=== PATIENT | female | born 1965 | race Caucasian/White ===

== ENCOUNTER 2023-05-22 17:04 | Outpatient (REF) | payer OTHER, SELFPAY ==
[2023-05-26 14:59] LABS: VITAMIN D (1,25 OH) D3 63 pg/mL; Vit D (1,25-Dihydroxy) Total 63 pg/mL (18-72); Vitamin D (1,25 OH) D2 <8 pg/mL
== END 2023-05-22 17:05 | disposition home or self-care (01) ==
LOC: HO.LAB 17:04
PROVIDERS: PCP Internal Medicine; Visit Provider Physician Assistant
DX: K21.9 Gastro-esophageal reflux disease without esophagitis (principal); E55.9 Vitamin D deficiency, unspecified
CPT/HCPCS: 36415; 82652

== ENCOUNTER 2023-06-09 16:32 | Outpatient (REF) | payer OTHER, SELFPAY | END 2023-06-09 16:33 | disposition home or self-care (01) | LOC: HO.LAB 16:32 | PROVIDERS: PCP Internal Medicine; Visit Provider Physician Assistant | DX: Z13.89 Encounter for screening for other disorder (principal) ==

== ENCOUNTER 2023-07-10 13:27 | Outpatient (AMB) | payer OTHER, SELFPAY ==
--- NOTE | 2023-07-10 13:35 | MHC.PC.OV ---
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 Transferring care from [facility]. Medical records have not been requested and have not received. Metal Or Wood Blocker Required: No Help Desk Manager: Not Required per policy Accompanied by: Self / Same As Patient Allergies cat dander Allergy (Intermediate, Verified 07/10/23 13:47) Wheezing chlorthalidone Allergy (Intermediate, Verified 07/10/23 13:47) toungue swelling hydrochlorothiazide Allergy (Intermediate, Verified 07/10/23 13:47) toungue swelling lisinopril Allergy (Intermediate, Verified 07/10/23 13:47) tongue swelling bee sting Allergy (Severe, Uncoded 07/10/23 13:47) Altered Sense of Taste Medication List - Last Reconciled 07/10/23 by Lucila Myers MD albuterol sulfate 90 mcg/actuation 2 puffs inhalation Q4-6H PRN amlodipine 5 mg PO DAILY biotin (Hair, Skin and Nails (biotin)) mcg PO calcium carbonate-vitamin D3 1,000 mg-20 mcg (800 unit) 1 tab PO DAILY epinephrine 0.3 mg IM Q4H PRN fluticasone propionate 50 mcg/actuation 2 sprays intranasal DAILY guar gum 1 tbsp PO DAILY loratadine (Allergy Relief (loratadine)) 10 mg PO DAILY multivitamin with iron (Daily Multiple Vitamins with Iron tablet) 1 tab PO DAILY ondansetron HCl 4 mg PO Q8H pantoprazole 40 mg PO BID polyethylene glycol 3350 (Miralax) 17 grams PO DAILY polyethylene glycol 3350 (Miralax) 17 grams PO DAILY Tobacco use date assessed: 07/10/23 Dental Screening Dental Screen Date: 07/10/23 Did you have a dental visit in the last 12 months?: Yes Did you have a dental problem in the last 6 months where you did not have access to dental care?: No Was dental information given to patient?: Patient has dentist 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 Has a history also of laparoscopic cholecystectomy under Dr. Molina in 2001. Had an elevation in liver function test before ultrasound done showing fatty liver. [facility] Surgical History (Updated 07/10/23 @ 14:22 by Lucila Myers MD) History of pubovaginal sling Hx laparoscopic cholecystectomy History of delivery Hx of myomectomy History of gastric surgery Family History (Updated 07/10/23 @ 14:25 by Lucila Myers MD) Mother Cerebral aneurysm Lung cancer Maternal Grandmother Cerebral aneurysm Breast cancer Maternal Grandfather Liver cancer Father CAD (coronary artery disease) Brother CAD (coronary artery disease) Other Substance use disorder Social History (Updated 07/10/23 @ 13:57 by Paulina Gutiérrez Roge) Housing: House Alcohol intake: current Alcohol intake frequency: holidays/special occasions only Patient Tobacco Use Status: Never used Tobacco e-Cigarette/Vaping Use: Never Used Second Hand Smoke Exposure: No service: No Current occupational status: employed Current occupation: Nurse Cognitive needs: No Hearing needs: No Vision needs: Yes (Glasses) Questionnaire PHQ-9 Over the last 2 weeks, how often have you been bothered by any of the following problems? 1. Little interest or pleasure in doing things: not at all 2. Feeling down, depressed, or hopeless: not at all 3. Trouble falling or staying asleep, or sleeping too much: not at all 4. Feeling tired or having little energy: not at all 5. Poor appetite or overeating: not at all 6. Feeling bad about yourself - or that you are a failure or have let yourself or your family down: not at all 7. Trouble concentrating on things, such as reading the newspaper or watching television: not at all 8. Moving or speaking so slowly that other people could have noticed. Or the opposite - being so fidgety or restless that you have been moving around a lot more than usual: not at all 9. Thoughts that you would be better off or of hurting yourself in some way: not at all Total score: 0 Depression Screening Interpretation: Negative Depression Screening Done: Yes Source: Developed by Drs. Scott Gómez, Erma Valente, Eduardo Alamo and colleagues, with an educational autumn from [employer]. Thrive Questionnaire Date Thrive assessed: 07/10/23 I am a: Patient What is your living situation today?: I have a steady place to live Within the past 12 months, did the food you bought not last and you didn't have the money to get more?: Never true Within the past 12 months, did you worry whether your food would run out before you got money to buy more?: Never true Do you have trouble paying for medicines?: No Do you have trouble getting transportation to medical appointments?: No Do you have trouble paying your heating and electricity bill?: No Do you have trouble taking care of your child, family member or friend?: No Do you have trouble with day-to-day activities such as bathing, preparing meals, shopping, managing finances, etc.?: No Are you currently unemployed and looking for a job?: No Are you interested in more education?: No Currently or been in a relationship where the following occur: no concerns reported THRIVE Score: 0 AUDIT C Alcohol Use Questionnaire (AUDIT-C) 1. How often do you have a drink containing alcohol?: Never Total Score: 0 KATIE-7 AMB Questionnaire KATIE-7 Date KATIE - 7 assessed: 07/10/23 Feeling nervous, anxious, or on edge: 0 = Not at all Not being able to stop or control worryin = Not at all Worrying too much about different things: 0 = Not at all Trouble relaxin = Not at all Being so restless that it is hard to sit still: 0 = Not at all Becoming easily annoyed or irritable: 0 = Not at all Feeling afraid as if something awful might happen: 0 = Not at all Total KATIE-7 score (0-4 normal; 5-9 mild; 10-14 moderate; 15-21 severe): 0 Source: Developed by Drs. Scott Gómez, Eduardo Paredes and colleagues, with an educational autumn from [employer]. Physical exam (Primary Care) Vital Signs: Last Vital Signs Pulse 70 07/10/23 13:37 BP 110/70 07/10/23 13:37 Pulse Ox 98 07/10/23 13:37 Oxygen Delivery Method Room Air 07/10/23 13:37 BMI result Body Mass Index 29.7 Tobacco/Smoking Status: Tobacco use Status Tobacco use date assessed 07/10/23 07/10/23 13:58 Patient Tobacco Use Status Never used Tobacco 07/10/23 13:58 e-Cigarette/Vaping Use Never Used 07/10/23 13:58 PHQ-9: PHQ-9 Score PHQ-9: Total score 0 07/10/23 13:58 Depression Screening Interpretation: Negative Thrive Assessment: Date of Thrive Assessment Date Thrive assessed 07/10/23 07/10/23 13:58 Currently or been in a relationship where the following occur: no concerns reported Const General: alert; No acute distress Eyes Conjunctivae: conjunctivae normal Resp Auscultation: clear to auscultation bilaterally Cardio Rate: regular rate Rhythm: regular rhythm GI Inspection: Yes normal to inspection Extrem General: Yes normal to inspection and No edema Assessment and Plan Assessment & Plan (1) Fatty liver: Code(s): K76.0 - Fatty (change of) liver, not elsewhere classified Plan: Low-fat diet and exercise (2) Hypertension: Code(s): I10 - Essential (primary) hypertension Plan: Continue with blood pressure medication. Decrease salt intake and exercise on amlodipine 5 mg once a day (3) History of gastric surgery: Comment: sleeve 02/15/23 Dr. Pricila Catalan/Ebony Code(s): Z98.890 - Other specified postprocedural states Plan: Continue to follow-up with bariatric surgeon (4) Overweight: Code(s): E66.3 - Overweight Plan: Continue with diet and exercise (5) GERD (gastroesophageal reflux disease): Code(s): K21.9 - Gastro-esophageal reflux disease without esophagitis Plan: Avoid the foods that causes that usually spicy foods, tomato products, juices, coffee, soda and foods that your sensitive to. After eating do not lie down, allow 3-4 hours before in lie down. And keep the head of bed above 30 degrees to avoid the acid from going up. (6) Breast cancer screening by mammogram: Code(s): Z12.31 - Encounter for screening mammogram for malignant neoplasm of breast Orders: Orders MM tomosynthesis screening BI Today Z12.31 - Encounter for screening mammogram for malignant neoplasm of breast Comprehensive Met. Panel Today I10 - Essential (primary) hypertension Thyroid Stimulating Hormone Today I10 - Essential (primary) hypertension Vitamin B1 Today I10 - Essential (primary) hypertension Vitamin A Today I10 - Essential (primary) hypertension Complete Blood Count Auto Diff Today I10 - Essential (primary) hypertension Free T4 (Free Thyroxine) Today I10 - Essential (primary) hypertension Lipid Panel Today E78.00 - Pure hypercholesterolemia, unspecified, I10 - Essential (primary) hypertension Vitamin B12 and Folate Today I10 - Essential (primary) hypertension Coding Level of Care Code New Pt Level 4 (14945) Diagnoses Fatty liver K76.0 Hypertension I10 History of gastric surgery Z98.890 Overweight E66.3 GERD (gastroesophageal reflux disease) K21.9 Breast cancer screening by mammogram Z12.31
[2023-07-10 13:37] VITALS: BP 110/70; PULSE 70; O2SAT 98; BMI 29.7
== END 2023-07-10 15:14 | disposition home or self-care (01) ==
PROVIDERS: PCP Internal Medicine; Visit Provider Internal Medicine
DX: K76.0 Fatty (change of) liver, not elsewhere classified (principal); I10 Essential (primary) hypertension; Z98.890 Other specified postprocedural states; E66.3 Overweight; K21.9 Gastro-esophageal reflux disease without esophagitis; Z12.31 Encounter for screening mammogram for malignant neoplasm of breast
CPT/HCPCS: 99204

== ENCOUNTER 2023-08-31 15:48 | Outpatient (REF) | payer OTHER, SELFPAY | END 2023-08-31 15:49 | disposition home or self-care (01) | LOC: HO.MAMMO 15:48 | PROVIDERS: PCP Internal Medicine; Visit Provider Internal Medicine | DX: Z12.31 Encounter for screening mammogram for malignant neoplasm of breast (principal) | CPT/HCPCS: 77063; 77067 ==

== ENCOUNTER → 2023-08-31 16:00 | Outpatient (BNV) | payer OTHER, SELFPAY | PROVIDERS: PCP Internal Medicine; Visit Provider Radiology Diagnostic Radiology | DX: Z12.31 Encounter for screening mammogram for malignant neoplasm of breast (principal) | CPT/HCPCS: 77063; 77067 ==

== ENCOUNTER 2023-12-12 08:47 | Outpatient (REF) | payer OTHER, SELFPAY ==
[2023-12-12 10:40] LABS: Basophils Percent Auto 0.9 % (0-2); Eosinophils Absolute Auto 0.1 X10*3/uL (0.0-0.4); Hematocrit 40.9 % (37.0-47.0); Hemoglobin 13.8 g/dl (12.0-16.0); Imm Gran Abs Auto 0.01 X10*3/uL (0.00-0.03); Imm Gran Pct Auto 0.2 % (0.0-0.4); Lymphocytes Absolute Auto 1.8 X10*3/uL (1.2-4.9); Lymphocytes Percent Auto 41.2 % (20-40); MANUAL DIFF FLAG NO; Mean Corpuscular HGB Conc 33.7 g/dl (31.0-35.0); Mean Corpuscular Volume 97.8 fL (80.0-98.0); Mean Platelet Volume 10.9 fL (9.4-12.3); Monocytes Absolute Auto 0.5 X10*3/uL (0.1-1.2); Monocytes Percent Auto 10.7 % (2-11); Neutrophils Absolute Auto 1.9 x10*3/uL (2.0-8.3); Platelet Count 237 X10*3/uL (160-400); Red Blood Count 4.18 X10*6/uL (4.20-5.50); Red Cell Distribution Width 13.2 % (11.0-16.0); White Blood Count 4.4 X10*3/uL (4.8-10.8)
[2023-12-12 10:44] LABS: Alanine Aminotransferase 14 U/L (0-31); Albumin Level 3.7 g/dL (3.5-5.0); Alkaline Phosphatase 60 U/L (39-117); Anion Gap 9 (12-20); Aspartate Amino Transferase 18 U/L (5-31); Bilirubin Total 0.7 mg/dL (0.0-1.0); Blood Urea Nitrogen 19 mg/dL (9-16); Calcium 9.2 mg/dL (8.4-10.2); Carbon Dioxide 31 mmol/L (22-29); Chloride 109 mmol/L (96-108); Cholesterol 190 mg/dL (<200); Estimated Glomerular Filt Rate > 60; Glucose Random 90 mg/dL (60-115); HDL Cholesterol 62 mg/dL (>40); LDL Cholesterol Calculated 111 mg/dL (<100); Potassium 4.4 mmol/L (3.3-5.1); Sodium 145 mmol/L (135-145); Total Protein 6.4 g/dL (6.5-8.0); Triglycerides 86 mg/dL (<150)
[2023-12-12 10:54] LABS: Free T4 (Free Thyroxine) 1.09 ng/dL (0.71-1.85); Thyroid Stimulating Hormone 1.17 uIU/mL (0.32-4.0)
[2023-12-12 16:43] LABS: Folate 11.7 ng/mL (> or = 4.0); Vitamin B12 1172 pg/mL (200-900)
[2023-12-18 01:39] LABS: Vitamin A 51 mcg/dL (38-98)
[2023-12-18 06:28] LABS: Vitamin B1 25 nmol/L (8-30)
== END 2023-12-12 08:48 | disposition home or self-care (01) ==
LOC: HO.LAB 08:47
PROVIDERS: PCP Internal Medicine; Visit Provider Internal Medicine
DX: I10 Essential (primary) hypertension (principal); E78.00 Pure hypercholesterolemia, unspecified
CPT/HCPCS: 36415; 80053; 80061; 82607; 82746; 84425; 84439; 84443; 84590; 85025

== ENCOUNTER 2023-12-15 14:34 | Outpatient (AMB) | payer OTHER, SELFPAY ==
[2023-12-15 14:35] VITALS: BP 130/68; PULSE 81; O2SAT 98; BMI 28.7
--- NOTE | 2023-12-15 14:35 | A.OFFPC_ITS ---
Vital Signs 12/15/23 14:35 Height 5 ft Weight 147 lb BMI 28.7 BP 130/68 Blood Pressure Location Lt brachial Position Sitting Pulse 81 Pulse Source Pulse Oximeter Pulse Oximetry (%) 98 Oxygen Delivery Method Room Air Intake Visit Reasons: Annual Exam Allergies cat dander Allergy (Intermediate, Verified 12/15/23 14:35) Wheezing chlorthalidone Allergy (Intermediate, Verified 12/15/23 14:35) toungue swelling hydrochlorothiazide Allergy (Intermediate, Verified 12/15/23 14:35) toungue swelling lisinopril Allergy (Intermediate, Verified 12/15/23 14:35) tongue swelling bee sting Allergy (Severe, Uncoded 12/15/23 14:35) Altered Sense of Taste Medication List - Last Reconciled 12/15/23 by Lucila Myers MD albuterol sulfate 90 mcg/actuation 2 puffs inhalation Q4-6H PRN amlodipine 5 mg PO DAILY biotin (Hair, Skin and Nails (biotin)) mcg PO calcium carbonate-vitamin D3 1,000 mg-20 mcg (800 unit) 1 tab PO BID epinephrine 0.3 mg IM Q4H PRN fluticasone propionate 50 mcg/actuation 2 sprays intranasal DAILY loratadine (Allergy Relief (loratadine)) 10 mg PO DAILY multivitamin with iron (Daily Multiple Vitamins with Iron tablet) 1 tab PO DAILY ondansetron HCl 4 mg PO Q8H pantoprazole 40 mg PO QAM sucralfate (Carafate) 10 mL PO BID Tobacco use date assessed: 07/10/23 Dental Screening Dental Screen Date: 12/15/23 Did you have a dental visit in the last 12 months?: Yes Did you have a dental problem in the last 6 months where you did not have access to dental care?: No Was dental information given to patient?: Patient has dentist HPI Annual Exam HPI Details 58-year-old overweight female with hyper tension GERD history of gastric surgery fatty liver coming in for annual physical last seen in 07/08/2023. Patient is up-to-date with colonoscopy in 2016 mammogram up-to-date. Review of the notes in June 2023 had an upper GI series revealing gastric sleeve surgery 07/07/2022, small sliding hiatal hernia. Large amount of gastroesophageal reflux to the upper esophagus. [facility] Medical History (Updated 12/15/23 @ 14:43 by Lucila Myers MD) Breast cancer screening by mammogram Surgical History (Updated 07/10/23 @ 14:22 by Lucila Myers MD) History of pubovaginal sling Hx laparoscopic cholecystectomy History of delivery Hx of myomectomy History of gastric surgery Family History (Updated 07/10/23 @ 14:25 by Lucila Myers MD) Mother Cerebral aneurysm Lung cancer Maternal Grandmother Cerebral aneurysm Breast cancer Maternal Grandfather Liver cancer Father CAD (coronary artery disease) Brother CAD (coronary artery disease) Other Substance use disorder Social History (Updated 12/15/23 @ 14:48 by Lucila Myers MD) Housing: House Alcohol intake: never Patient Tobacco Use Status: Never used Tobacco Tobacco use type: Cigarette e-Cigarette/Vaping Use: Never Used Second Hand Smoke Exposure: No service: No Current occupational status: employed Current occupation: Nurse Cognitive needs: No Hearing needs: No Vision needs: Yes (Glasses) Questionnaire PHQ-9 Over the last 2 weeks, how often have you been bothered by any of the following problems? 1. Little interest or pleasure in doing things: not at all 2. Feeling down, depressed, or hopeless: not at all 3. Trouble falling or staying asleep, or sleeping too much: not at all 4. Feeling tired or having little energy: not at all 5. Poor appetite or overeating: not at all 6. Feeling bad about yourself - or that you are a failure or have let yourself or your family down: not at all 7. Trouble concentrating on things, such as reading the newspaper or watching television: not at all 8. Moving or speaking so slowly that other people could have noticed. Or the opposite - being so fidgety or restless that you have been moving around a lot more than usual: not at all 9. Thoughts that you would be better off or of hurting yourself in some way: not at all Total score: 0 Depression Screening Interpretation: Negative Depression Screening Done: Yes Source: Developed by Drs. Scott Gómez, Erma Valente, Eduardo Alamo and colleagues, with an educational autumn from [employer]. Thrive Questionnaire Date Thrive assessed: 07/10/23 AUDIT C Alcohol Use Questionnaire (AUDIT-C) 1. How often do you have a drink containing alcohol?: Never 3. How often do you have six or more drinks on one occasion?: Never Total Score: 0 KATIE-7 AMB Questionnaire KATIE-7 Date KATIE - 7 assessed: 07/10/23 Source: Developed by Drs. Scott Gómez, Erma Valente, Eduardo Alamo and colleagues, with an educational autumn from [employer]. Review of Systems Const Denies poor appetite and Denies weakness Eyes Denies no additional complaints ENT Reports Normal hearing present, Denies dizziness, Denies nasal congestion, Denies tinnitus and Denies sore throat Card Denies chest pain, Denies syncope, Denies rapid heart rate and Denies dyspnea Resp Denies cough and Denies dyspnea GI Denies change in stool character, Reports constipation, Denies diarrhea, Denies nausea and Denies vomiting Denies urinary frequency, Denies difficulty voiding and Denies dysuria Neuro Reports Normal hearing present, Denies confusion, Denies dizziness, Denies syncope and Denies weakness Psych Denies confusion Physical exam (Primary Care) Vital Signs: Last Vital Signs Pulse 81 12/15/23 14:35 BP 130/68 12/15/23 14:35 Pulse Ox 98 12/15/23 14:35 Oxygen Delivery Method Room Air 12/15/23 14:35 BMI result Body Mass Index 28.7 Tobacco/Smoking Status: Tobacco use Status Tobacco use date assessed 07/10/23 12/15/23 14:40 Patient Tobacco Use Status Never used Tobacco 12/15/23 14:40 Tobacco use type Cigarette 12/15/23 14:40 e-Cigarette/Vaping Use Never Used 12/15/23 14:40 PHQ-9: PHQ-9 Score PHQ-9: Total score 0 12/15/23 14:40 Depression Screening Interpretation: Negative Thrive Assessment: Date of Thrive Assessment Date Thrive assessed 07/10/23 12/15/23 14:40 Const General: No confusion Orientation/consciousness: No confusion HENMT Head: Yes normocephalic Ears: external ears normal and TM's normal bilaterally Face and sinus: Yes normal facial exam Mouth: moist mucous membranes Throat: Yes tonsils normal Eyes Conjunctivae: conjunctivae normal Pupils: Equal, round and reactive pupils present and Pupil accommodation reflex normal Direct Ophthalmoscopy: normal light reflex Neck Neck: No lymphadenopathy Thyroid: Thyroid normal Chest Chest palpation & inspection: normal inspection of the chest Resp Effort & Inspection: normal respiratory effort and no audible wheezes Auscultation: clear to auscultation bilaterally, no crackles, no wheezes and lung sounds not diminished Cardio Other: bigeminy Rate: regular rate Rhythm: regular rhythm Peripheral pulses: radial pulses present and dorsalis pedis present GI Other: decline Palpation (GI): no masses Auscultation: normal bowel sounds and normoactive bowel sounds Rectal Exam - Female: deferred Skin General skin exam: no rashes or lesions noted Rashes: no rashes Neuro General: No confusion Cranial nerves: Yes Equal, round and reactive pupils present and Yes Normal hearing present Cognition (Neuro): normal cognition Gait exam (Neuro): Normal gait present Motor exam (neuro): 5/5 motor strength present throughout Deep tendon reflexes (DTR's): Right brachioradialis reflex intensity grade: 2+, Left brachioradialis reflex intensity grade: 2+, Right patellar reflex intensity grade: 2+ and Left patellar reflex intensity grade: 2+ Extrem General: No edema Assessment and Plan Assessment & Plan (1) Annual physical exam: Code(s): Z00.00 - Encounter for general adult medical examination without abnormal findings Plan: Patient is advised to eat healthy, keep well hydrated, keep active and have adequate sleep. (2) History of gastric surgery: Comment: sleeve 02/15/23 Dr. Pricila Catalan/Ebony Code(s): Z98.890 - Other specified postprocedural states Plan: Continue to follow-up with bariatric surgeon (3) GERD (gastroesophageal reflux disease): Code(s): K21.9 - Gastro-esophageal reflux disease without esophagitis Plan: Avoid the foods that causes that usually spicy foods, tomato products, juices, coffee, soda and foods that your sensitive to. After eating do not lie down, allow 3-4 hours before in lie down. And keep the head of bed above 30 degrees to avoid the acid from going up. On pantoprazole 40 mg twice a day (4) Hypertension: Code(s): I10 - Essential (primary) hypertension Plan: Continue with blood pressure medication. Decrease salt intake and exercise takes amlodipine 5 mg once a day (5) Fatty liver: Code(s): K76.0 - Fatty (change of) liver, not elsewhere classified Plan: Low-fat diet and exercise Orders: Referrals Gastroenterology Referral K21.9 - Gastro-esophageal reflux disease without esophagitis Coding Level of Care Code Est Pt Prev Care 40-64y(18343) Diagnoses Annual physical exam Z00.00 History of gastric surgery Z98.890 GERD (gastroesophageal reflux disease) K21.9 Hypertension I10 Fatty liver K76.0
== END 2023-12-15 15:02 | disposition home or self-care (01) ==
PROVIDERS: PCP Internal Medicine; Visit Provider Internal Medicine
DX: Z00.00 Encounter for general adult medical examination without abnormal findings (principal); Z98.890 Other specified postprocedural states; K21.9 Gastro-esophageal reflux disease without esophagitis; I10 Essential (primary) hypertension; K76.0 Fatty (change of) liver, not elsewhere classified
CPT/HCPCS: 99396

== ENCOUNTER 2024-09-05 15:53 | Outpatient (REF) | payer OTHER, SELFPAY ==
--- OUTSIDE RECORDS SUMMARY | 2024-09-05 15:59 | XMS_ITS ---
Author Organization [facility] Address [address] [place] [address] Care Team Providers Care Drying Machine Receiver Name Role Phone Lucila Myers MD Primary Care Provider Scott Ortega [phone] REASON FOR VISIT gerd Encounters Encounter Location Date Provider Diagnosis [facility] [address] [place] [address] 05/04/2024 Scott Gil Plan Of Treatment Next Appt Details Provider Name:Scott Spenser Gil , 01/11/2025 04:20:00 PM, [address], [address], [place], [address], Progress Notes * DAY PARKOLIVIADOB:1965 ( 59 yo F)Acc No.[id number]:05/04/2024 Progress Notes Patient:?STEVE PARK Provider:?Scott Gil MD :1965???Age:58 Y???Sex:Female D ate:05/04/2024 Address:[address] [place], [place] [id number] Pcp:Lucila Myers MD Subjective: * Chief Complaints: * ???1. Gerd. * Medical History:? Objective: * Vitals:? Assessment: Plan: * Treatment: * * The named appointment provid er may or may not be the originator of this progress note, and it is not deemed complete until electronically signed by the appointment provider. Sign off status: Pending * Provider:?Scott Gil MD Date:? 025 Generated for Krystal belcher/Famiroslavag/eTransmitting on:?09/05/2024 03:58 PM EDT
--- OUTSIDE RECORDS SUMMARY | 2024-09-05 15:59 | XMS_ITS ---
Author Organization [facility] Address [address] [place] [address] Care Team Providers Care Technical Spec Name Role Phone Lucila Myers MD Primary Care Provider Scott Ortega [phone] REASON FOR VISIT rescheduled appt Encounters Encounter Location Date Provider Diagnosis [facility] [address] [place] [address] 08/22/2024 Scott Gil Plan Of Treatment Next Appt Details Provider Name:Scott Gil , 01/11/2025 04:20:00 PM, [address], [address], [place], [address], Progress Notes * STEVE PARKDOB:1965 ( 59 yo F)Acc No.[id number]:08/22/2024 Patient:?STEVE PARK :1965???Age:59 Y???Sex:Female Address:[address] [place] [address], [address] Subjective: * Chief Complaints: * ???Rescheduled appt * Medical History:? * Surgical History:? * Hospitalization/Major Diagno stic Procedure:? * Medications:? Objective: * Vitals:? * Physical Examination:? Assessment: Plan: * Treatment: * Procedure Codes:? * true * Date:? Generated for Krystal belcher/Mikey/eTwillsmitting on:?09/05/2024 03:59 PM EDT
--- OUTSIDE RECORDS SUMMARY | 2024-09-05 15:59 | XMS_ITS ---
Author Organization [facility] Address [address] [place] [address] Care Team Providers Care Upper Leather Sorter Name Role Phone Lucila Myers MD Primary Care Provider Scott Ortega [phone] REASON FOR VISIT Patient presents today for gerd Encounters Encounter Location Date Provider Diagnosis [facility] [address] [place] [address] 08/24/2024 Scott Gil Plan Of Treatment Next Appt Details Provider Name:Scott Dueñas Jeffery , 01/11/2025 04:20:00 PM, [address], [address], [place], [address], Progress Notes * XAVIER STEVEDOB:1965 ( 59 yo F)Acc No.[id number]:08/24/2024 Progress Notes Patient:?STEVE PARK Provider:?Scott Gil MD :1965???Age:59 Y???Sex:Female D ate:08/24/2024 Address:[address] [place], [place] [id number] Pcp:Lucila Myers MD Subjective: * Chief Complaints: * ???1. Patient presents today for gerd. * Medical History:? Objective: * Vitals:? Assessment: Plan: * Treatment: * * The named appointment provid er may or may not be the originator of this progress note, and it is not deemed complete until electronically signed by the appointment provider. Sign off status: Pending * Provider:?Scott Gil MD Date:? 025 Generated for Krystal belcher/Famiroslavag/eTransmitting on:?09/05/2024 03:59 PM EDT
--- OUTSIDE RECORDS SUMMARY | 2024-09-05 15:59 | XMS_ITS | Patient Health Record ---
Author Organization [facility] Address [address] [place] [address] Care Team Providers Care Embedded Systems Software Engineer Name Role Phone Lucila Myers MD Primary Care Provider Scott Ortega Unavailable [phone] Reason For Referral No Information Encounters Encounter Location Date Provider Diagnosis [facility] [address] [place] [address] [address] [place] [address] 08/22/2024 Scott Gil Plan Of Treatment Next Appt Details Provider Name:Scott Gil , 01/11/2025 04:20:00 PM, [address] [place] [address], [address], [place], [address], Insurance Providers Payer Name Payer Address Payer Phone Subscriber Number Group Number Insured Name Patient Relationship to Insured Coverage Start Date Coverage End Date [facility] [address] SHIELA MONROY [id number] STEVE PARK Self - patient is the insured
--- OUTSIDE RECORDS SUMMARY | 2024-09-05 15:59 | XMS_ITS | Clinical Summary ---
Author Organization [address] [facility] Address [address] [place] [address] Phone Care Team Providers Care Nicker Name Role Phone Unavailable Primary Care Provider Unavailabl e Allergies Active Allergy Reactions Criticality Noted Date Comments Bee Venom Protein (Honey Bee) Anaphylaxis High 07/29 Cat Dander 07/29/2018 wheezing Chlorthalidone Other 04/20/2019 hypokalemia Lisinopril Swelling High 07/29/2018 Tongue swelling Medications acetaminophen (TYLENOL) 500 mg tablet Take 2 tablets (1,000 mg total) by mouth. 3 Active albuterol HFA (PROAIR HFA ; PROVENTIL HFA ; VENTOLIN HFA) 90 mcg/actuation inhaler Inhale 2 puffs by mouth. 1 Active amLODIPine-atorvas tatin (CADUET) 5-10 mg per tablet Take 1 tablet by mouth 1 (one) time each day. Active EPINEPHrine (EpiPen 2-Tha) 0.3 mg/0.3 mL injection Inject 0.3 mL (0.3 mg total) into the thigh. 3 Active fluticasone propionate (FLONASE) 50 mcg/actuation nasal spray Administer 2 sprays into affected nostril(s). 9 Active loratadine (CLARITIN) 10 mg tablet Take 1 tablet (10 mg total) by mouth 1 (one) time each day. 3 Active ondansetron ODT (ZOFRAN-ODT) 4 mg disintegrating tablet Take 1 tablet (4 mg total) by mouth. 4 Active pantoprazole (PROTONIX) 40 mg EC tablet TAKE 1 TABLET BY MOUTH 2 TIMES DAILY FOR 180 DAYS. 4 Active polyethylene glycol (MIRALAX) 17 gram packet Take 17 g by mouth. 3 Active simethicone (MYLICON) 80 mg chewable tablet Chew 1 tablet (80 mg total). 3 Active sucralfate (CARAFATE) 100 mg/mL suspension Take 10 mL (1 g total) by mouth. 4 Active multivitamin with minerals (CENTRUM/CERTAVIT) 18-400 mg-mcg tablet tablet Take by mouth. A ctive calcium carbonate-vitamin D3 1,000 mg-20 mcg (800 unit) tablet Take by mouth. Active wheat dextrin 3 gram/3.8 gram powder Take 4 g by mouth. 3 Active Active Problems Problem Noted Date Diagnosed Date GERD (gastroesophageal reflux disease) 4 Hypertension 02/17/2024 Overview (02/17/2024): Last Assessment & Plan: Her blood pressure is under good control at this time. She will continue to work on healthy lifestyle choices. This will help to improve her blood pressure as well. Left knee pain 02/17/2024 Overview (02/17/2024): Dr. Harper cartilage RAD (reactive airway disease) 02/17/2024 Lesion of cervix 08/28/2021 Overview (02/17/2024): Last Assessment & Plan: Pap smear from 2019 reviewed and normal. After informed consent was obtained cervical biopsy was collected. Will inform patient of results when available. Postmenopausal bleeding 08/27/2021 Overview (02/17/2024): Last Assessment & Plan: Discussed recommendation for hysterectomy for recurrent postmenopausal bleeding. Patient defers at this time. She prefers to proceed with expectant management at this time. If she continues to have episodes of postmenopausal bleeding, she will then consider hysterectomy. We discussed in the event of deferring surgery I recommend repeat endometrial biopsy today. Patient in agreement. Biopsy performed. We discussed postprocedure cramping and light bleeding. Advised to avoid anything in the vagina for three days. Advised to call with increasing pain, heavy bleeding, or fever. Pt will be informed of results when available. 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 Also showing ventricular bi/trigeminy with rare ventricular couplets. PVC morphology RBBB. Early transition superior axis suspect LV superior basilar foci. Diary returned with palpitations corresponding to this. Last Assessment & Plan: She feels that her palpitations have improved. She is not felt these as much as she had in the past. I did not notice any of these on examination. We did discuss that an increase in PVCs can cause a decrease in LV function. At this point we will monitor for any changes. She has had no evidence of heart failure. She will let me know if she develops any of the symptoms occluding leg edema orthopnea fatigue. She has any of these we will repeat imaging. We also discussed medication changes. Again at this point she will stay off of beta-marsha due to her EpiPen use. If need be in the future we can try her off Norvasc and on a different calcium channel marsha. She will continue to monitor for any potential triggers. She does feel that decreasing her caffeine use has improved her symptoms. Hyperlipidemia 03/14/2019 Urinary, incontinence, stress female 03/11/2019 Encounters Date Type Department Care Team Description 06/29/2024 2:30 PM EDT Office Visit Bariatric Surgery - [address] [place] [address] Sushma Samson MD S/P bariatric surgery (Primary Dx); Gastroesophageal reflux disease, unspecified whether esophagitis present; Hiatal hernia; Overweight from Last 3 Months Immunizations Name Administration Dates Next Due Influenza Quadravalent, MDCK , 0.5ml, preservative free (Flucelvax) 6mo and older 02/28/2022,02/01/2020 Influenza Quadrivalent, 0.5m l, preservative free (Fluarix; FluLaval; Fluzone) ages 6mo and older (Afluria) 3yo and older 03/05/2023,03/02/2021 Influenza trivalent, 0.5mL, preservative free (Fluarix; FluLaval; Fluzone) ages 6mo and older (Afluria) 3 years and older 03/10/2024 Tdap Tetanus diptheria acell ular pertussis (Boostrix; Adacel) 7yo and older 07/18/2014 Surgical History Surgery Date Site/Laterality Comments OTHER SURGICAL HISTORY 1995 PROCEDURE: ANESTHESIA FOR SECTION CHOLECYSTECTOMY 2000 PROCEDURE: LAPAROSCOPIC CHOLECYSTECT OTHER SURGICAL HISTORY 2003 PROCEDURE: ---- OTHER ----; COMMENT: vaginal sling OTHER SURGICAL HISTORY PROCEDURE: HISTORY OTHER; COMMENT: vaginal fibroid removal Medical History Medical History Date Comments Hypertension DX:Hypertension GERD (gastroesophageal reflux disease) DX:GERD (gastroesophageal reflux disease) RAD (reactive airway disease) DX :RAD (reactive airway disease) Left knee pain DX:Left knee nazia n; COMMENT: Dr. Harper cartilage Dysphagia DX:Dysphagia GERD (gastroesophageal reflux disease) DX:GERD (gastroesophageal reflux disease) Family History Medical History Relation Name Comments Coronary artery disease Brother 1 s/p DC Diabetes Brother 1 Heart failure Brother 1 Hypertension Brother 1 Stroke Brother 1 tobacco, alcoho l, drug abuve Alcohol abuse Brother 2 tobacco, drugs Hypertension Brother 2 No Known Problems Daughter 1 No Known Problems Daughter 2 Coronary artery disease Father s/p DC Diabetes Father tobacco Heart attack Father Hypertension Father Other: pancreatic cancer Maternal Grandfather Breast cancer Maternal Grandmother Cerebral aneurysm Mother Glaucoma Mother Lung cancer Mother liver mets, tob acco Stroke Mother Relation Name Status Comments Brother 1 Alive Brother 2 Daughter 1 Alive Daughter 2 Alive Father (Age 75) Maternal Grandfather Maternal Grandmother Mother (Age 59) Paternal Grandfather Paternal Grandmother Social History Tobacco Use Types Packs/Day Years Used Date Smoking Tobacco: Never Smokeless Tobacco: Never Alcohol Use Standard Drinks/Week Comments Not Currently 0 (1 standard drink = 0.6 oz pur e alcohol) Comments Unknown Sex and Gender Information Value Date Recorded Sex Assigned at Not on file Legal Sex Female 8:38 PM EST Gender Identity Not on file Sexual Orientation Not on file Obstetrics History Last Filed Vital Signs Vital Sign Reading Time Taken Comments Blood Pressure 131/62 06/29/2024 2:23 PM EDT Pulse 55 06/29/2024 2:23 PM EDT Temperature 36.9 ??C (98.4 ??F) 06/29/2024 2:23 PM ED T Respiratory Rate - - Oxygen Saturation 99% 06/29/2024 2:23 PM EDT Inhaled Oxygen Concentration - - Weight 65.8 kg (145 lb) 06/29/2024 2:23 PM EDT Height 152.4 cm (5') 06/29/2024 2:23 PM EDT Body Mass Index 28.32 06/29/2024 2:23 PM EDT Plan of Treatment Health Maintenance Due Date Last Done Comments Hepatitis B Vaccines (1 of 3 - 19+ 3-dose series) 1984 Pneumococcal Vaccine: 50+ Years (1 of 1 - PCV) 2015 Zoster Vaccines (1 of 2) 2015 Cervical Cancer Screening: Pap Smear 10/05/2021 10/05/2018 Cholesterol Screening (Lipid Panel) 03/29/2022 Colorectal Cancer Screening: Colonoscopy 03/29/2022 Depression Screening 03/29/2022 HIV Screening 03/29/2022 Social Influencers of Health Screening 03/29/2022 Hypertension/CHF/CAD Annual BMP Blood Test 03/30/2022 COVID-19 Vaccine ( season) 2023 01/08/2023, 02/20/2021, 06/07/2020, Additional history exists DTaP,Tdap,and Td Vaccines (2 - Td or Tdap) 07/18/2024 07/18/2014 Breast Cancer Screening 08/02/2024 08/03/19 23, 07/12/2021, 04/02/2020, Additional history exists RSV Immunization Adult Patients (1 - 1-dose 75+ series) 2040 Hepatitis C Screening Completed 08/14/2022 Influenza Vaccine Completed 03/10/2024, , 02/28/2022, Additional history exists HIB Vaccines Aged Out No longer eligi ble based on patient's age to complete this topic HPV Vaccines Aged Out No longer eligi ble based on patient's age to complete this topic Hepatitis A Vaccines Aged Out No long er eligible based on patient's age to complete this topic IPV Vaccines Aged Out No longer eligi ble based on patient's age to complete this topic MMR Vaccines Aged Out No longer eligi ble based on patient's age to complete this topic Meningococcal ACWY Vaccine Aged Out N o longer eligible based on patient's age to complete this topic Meningococcal B Vaccine Aged Out No l onger eligible based on patient's age to complete this topic Pneumococcal Vaccine: Pediatrics (0 to 5 Years) and At-Risk Patients (6 to 64 Years) Aged Out No longer eligible based on patient's age to complete this topic RSV Immunization Patients Under 20 months Aged Out No longer eligible based on patient's age to complete this topic Varicella Vaccines Aged Out No longer eligible based on patient's age to complete this topic Procedures Procedure Name Priority Date/Time Associated Diagnosis Comments DIGNA SCREENING DIGITAL Routine 08/02/2022 3:26 PM EDT Encounter for screening mammogram for malignant neoplasm of breast PAP SMEAR Routine 10/05/2018 from Last 3 Months or Most Recently Relevant to Health Maintenance Results * DIGNA SCREENING DIGITAL (08/02/2022 3:26 PM EDT) Anatomical Region Laterality Modality Mammography 07/31/2022 12:4 4 PM EDT Narrative 08/02/2022 3:[address] [facility] Diagnostic Imaging Department [address] [place] [address] Patient: ??BARRE,STEVE ?/Age/Sex: 1965 Unit#: ??[id number] ? Location/Status: ??SPDIMAM/REG CLI ? Mnemonic/Ordering Site: ??DIGSC/SPMAM Ordering Physician: ??AMINTA CLINE [facility] Screening Digital - 07/31/22 - 1619 EXAM: [facility] Screening Digital EXAM DATE AND TIME: 07/31/2022 4:22 PM HISTORY: ??Screening. Maternal grandmother had breast carcinoma. COMPARISON: ??07/11/21, 04/02/20, 03/01/18 TECHNIQUE: CC and MLO views of both breasts were obtained using full field digital mammography. Bilateral digital breast tomosynthesis was performed in the MLO projection. Computer aided detection with [employer] 7.2-H and [employer] 3D 3.1 was employed. TISSUE DENSITY: b. There are scattered areas of fibroglandular density. FINDINGS: No suspicious masses, grouped microcalcifications, or areas of architectural distortion are seen. The skin and vascularity are unremarkable. IMPRESSION: Stable mammographic appearance of the breasts. ??No evidence of malignancy is seen. A negative mammogram in the presence of a clinically suspicious palpable abnormality does not preclude the possibility of malignancy or alter the indications for biopsy. BI-RADS: ??Category 1: Negative RECOMMENDATION(S): 1: Routine screening mammogram BILATERAL in 1 year. 17009, 46890 3341F, 7025F Dictating Physician: ??ROCIO BROOKS MD Electronically Signed by: ??ROCIO BROOKS MD Dic Date/Time: ??08/02/22 1525 Sign date/Time: ??08/02/22 1526 Procedure Note Rocio Brooks MD - 05/22/2023 [facility] Diagnostic Imaging Department [address] [place] [id number] Patient: STEVE PHAM /Age/Sex: 1965 - 57 - F Unit#: [id number] Location/Status: SPDIMAM/REG CLI Mnemonic/Ordering Site: [facility] Ordering Physician: AMINTA CLINE [facility] Screening Digital - 07/31/22 - 1619 EXAM: [facility] Screening Digital EXAM DATE AND TIME: 07/31/2022 4:22 PM HISTORY: Screening. Maternal grandmother had breast carcinoma. COMPARISON: 07/11/21, 04/02/20, 03/01/18 TECHNIQUE: CC and MLO views of both breasts were obtained using fullfield digital mammography. Bilateral digital breast tomosynthesis was performedin the MLO projection. Computer aided detection with [employer] 7.2-H and[employer]ant[employer] 3D 3.1 was employed. TISSUE DENSITY: b. There are scattered areas of fibroglandular density. FINDINGS: No suspicious masses, grouped microcalcifications, or areas ofarchitectural distortion are seen. The skin and vascularity are unremarkable. IMPRESSION: Stable mammographic appearance of the breasts. No evidence of malignancyis seen. A negative mammogram in the presence of a clinically suspicious palpable abnormality does not preclude the possibility of malignancy or alter the indications for biopsy. BI-RADS: Category 1: Negative RECOMMENDATION(S): 1: Routine screening mammogram BILATERAL in 1 year. 44784, 95586 3341F, 7025F Dictating Physician: ROCIO BROOKS MD Electronically Signed by: ROCIO BROOKS MD Dic Date/Time: 08/02/22 1525 Sign date/Time: 08/02/22 1526 us Aminta Cline MD IMG BI PROCEDURES Final Result * Pap smear (10/05/2018) 10/05/2018 Narrative HISTORICAL TESTING LAB RESULTING AGENCY - 10/08/2018 1:45 PM EDT [id number] THINPREP PAP, IMAGED: NEGATIVE FOR SQUAMOUS INTRAEPITHELIAL LESION AND MALIGNANCY . CANDELARIO DEMPSEY(ASCP) (CASE ELECTRONICALLY SIGNED 10 08 2018) RESULT OF APTIMA HIGH RISK HPV ASSAY: HIGH RISK HPV: ??NEGATIVE (SEROTYPES 16,18,31,33,35,39,45,51,52,56,58,59,66,68) COMPLETED ON 2018-10-07 ADEQUACY: SATISFACTORY ENDOCERVICAL/TRANSFORMATION ZONE COMPONENT PRESENT. SOURCE: THINPREP PAP HPV ANY DX: ??REFLEX 16 AND 18, CERVICAL, IMAGED CLINICAL INFORMATION: HPV ANY DIAGNOSIS. MENOPAUSE, PAP HX NEG. Z12.4 us Monse Goodwin DO LAB CYTOLOGY ORDERABLES Fin al Result HISTORICAL TESTING LAB RESULTING AGENCY from Last 3 Months or Most Recently Relevant to Health Maintenance Insurance [facility]
== END 2024-09-05 15:54 | disposition home or self-care (01) ==
LOC: HO.MAMMO 15:53
PROVIDERS: PCP Internal Medicine; Visit Provider Internal Medicine
DX: Z12.31 Encounter for screening mammogram for malignant neoplasm of breast (principal)
CPT/HCPCS: 77063; 77067

== ENCOUNTER → 2024-09-05 16:00 | Outpatient (BNV) | payer OTHER, SELFPAY | PROVIDERS: PCP Internal Medicine; Visit Provider Internal Medicine | DX: Z12.31 Encounter for screening mammogram for malignant neoplasm of breast (principal) | CPT/HCPCS: 77063; 77067 ==